=== PATIENT | male | born 1990 | race Caucasian/White ===

== ENCOUNTER 2022-09-04 05:14 | Emergency (ER) | payer SELFPAY ==
[~2022-09-04] VITALS: Ht 167.6 cm; Wt 68.0 kg
[2022-09-04 05:18] VITALS: BP 125/79; PULSE 83; RESP 20; TEMP 98.2; O2SAT 98
--- NOTE | 2022-09-04 05:18 | NUR ---
PT IS AT THE CHAIR C
--- NOTE | 2022-09-04 06:15 | NUR ---
EXAMINING PT AT THE CHAIR
[2022-09-04 06:16] VITALS: BP 125/79; PULSE 83; RESP 20; TEMP 98.2; O2SAT 98
--- NOTE | 2022-09-04 06:21 | NUR ---
Patient discharged with v/s stable. Written and verbal after care instructions given and explained. Patient verbalized understanding. Police with in custody. All questions addressed prior to discharge. Advised to follow up with PMD.
--- NOTE | 2022-09-04 06:22 | NUR ---
PATIENT BIB [facility] [facility]. PATIENT EXAMINED BY DR. GILES. PATIENT MEDICALLY CLEARED AND RELEASED IN CUSTODY IN STABLE CONDITION. ORIGINAL PRE-BOOK FORM GIVEN TO OFFICER Roel MYERS [id number].
== END 2022-09-04 06:21 ==
LOC: MED 05:14
DX: Z02.89 Encounter for other administrative examinations (principal); V49.88XA Car occupant (driver) (passenger) injured in other specified transport accidents, initial encounter; Y93.89 Activity, other specified; Y92.89 Other specified places as the place of occurrence of the external cause; Y99.8 Other external cause status
CPT/HCPCS: 99283